=== PATIENT | male | born 1980 | race Caucasian/White ===

== ENCOUNTER 2018-04-09 19:04 | Emergency (ER) | payer MEDICAID ==
[~2018-04-09] VITALS: Ht 160 cm; Wt 72.7 kg
[2018-04-09 19:08] VITALS: Ht 160 cm; Wt 72.7 kg
[2018-04-09] MEDS ORDERED: SOD CHLORIDE 0.9% 1,000 ML IV STA (19:09)
[2018-04-09] MEDS ORDERED: IOHEXOL 300MG/ML 150 ML BTL ONE (19:14)
[2018-04-09] MEDS ORDERED: SOD CHLORIDE 0.9% 100 ML ONE (19:14)
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
[2018-04-09 22:09] VITALS: BP 139/69; PULSE 73; RESP 19
== END 2018-04-09 22:13 | disposition home or self-care (01) ==
LOC: EDBD 19:04 → E/R 19:04
DX: F10.920 Alcohol use, unspecified with intoxication, uncomplicated (principal); R40.2142 Coma scale, eyes open, spontaneous, at arrival to emergency department; R40.2362 Coma scale, best motor response, obeys commands, at arrival to emergency department; R40.2252 Coma scale, best verbal response, oriented, at arrival to emergency department; S52.502A Unspecified fracture of the lower end of left radius, initial encounter for closed fracture; F17.210 Nicotine dependence, cigarettes, uncomplicated; R10.9 Unspecified abdominal pain; R93.0 Abnormal findings on diagnostic imaging of skull and head, not elsewhere classified; V89.2XXA Person injured in unspecified motor-vehicle accident, traffic, initial encounter
CPT/HCPCS: 29125; 70450; 71260; 72125; 73110; 74177; 80048; 80307; 85025; 85610; 85730; 93005; J7030; Q9967; Z7502; Z7610